=== PATIENT | male | born 1980 | race Caucasian/White ===

== ENCOUNTER 2024-12-20 08:24 | Emergency (ER) | payer OTHER, SELFPAY ==
[2024-12-20 08:26] VITALS: BP 134/93
--- NOTE | 2024-12-20 08:54 | EDRN ---
Gardenia Cabrera PA in room w/ pt at this time.
--- NOTE | 2024-12-20 09:02 | ED.GENMED ---
History of Present Illness
General
Chief Complaint: Trauma Significant Mechanism
Time Seen by Provider: 12/20/24 08:53
History of Present Illness
History of Present Illness:
44-year-old male presents to the emergency department for evaluation of mid to low back pain as well as bilateral forearm and hand weakness beginning after falling off a one-story roof 2 days ago. He states he fell from approximately 12 to 15 feet,
landing on his back and did strike his head. States he was unable to get up for approximately 1 hour. He denies any leg symptoms and has been able to walk without difficulty. Does not take blood thinners.
Past History
Past History
ED Past Medical History: Negative HTN, Hypercholesterolemia, IDDM or NIDDM
ED Past Surgical History: Orthopedic
Social History
Tobacco: Smoker
Review of Systems
Review of Systems
Allergies reviewed?: Yes
All Other Systems: ROS reviewed and negative except as documented in HPI and ROS
Phy Exam
Physical Exam
Physical Exam:
GEN: Well appearing, NAD, WDWN
Eyes: PERRLA, EOMs intact, no scleral icterus
HENT: NCAT, oral mucosa moist, No midline cervical spine tenderness
Lungs: CTAB, no wheezes, rales, rhonchi, normal chest wall excursion
Cardiac: RRR, no M/R/G, no peripheral edema. Radial pulses 2+ bilat
Abdomen: S, NT, ND, NABS, no masses or hepatosplenomegaly
Neuro: AO x 3 Cranial nerves II through XII grossly intact. Significant weakness noted to bilateral handgrip and wrist flexion, shoulder abduction and abduction 5 out of 5 and symmetric bilaterally, normal sensation to bilateral hands, Normal
strength of bilateral lower extremities
MSK: No gross deformity or ecchymosis. No midline thoracic spine tenderness, mild upper lumbar spine tenderness, midline incisional scar from kyphosis surgical correction
Skin: No rashes, petechiae. Normal color, no pallor or jaundice.
Psych: Calm, cooperative, proper hygiene
Course
Orders/Labs/Results
Orders:
Orders
12/20/24 09:01
CT Cervical Spine W/o Iv Contr Urgent
Comment:
Reason For Exam: trauma
CT Head W/o Iv Contrast Urgent
Comment:
Reason For Exam: trauma
CT Lumbar Spine W/o Iv Contras Urgent
Comment:
Reason For Exam: trauma
CT Thoracic Spine W/o Iv Contr Urgent
Comment:
Reason For Exam: trauma
12/20/24 09:20
IV Insert/Care/Rem.- Treatment PRN
12/20/24 09:52
Complete Blood Count/No Diff Urgent
Comprehensive Metabolic Panel Urgent
Abnormal Lab Results
12/20/24
09:52
WBC 13.9 H 10^3/uL
(4.8-10.8)
RDW 14.7 H %
(11.5-14.5)
Chloride 112 H mmol/L
(98-107)
Carbon Dioxide 20 L mmol/L
(22-30)
ALT 53 H U/L
(0-50)
12/20/24 09:52
12/20/24 09:52
Vital Signs
Initial and Last Documented VS:
Initial Vital Signs
Temp Pulse Resp BP Pulse Ox
98.2 F 102 18 134/93 97
12/20/24 08:26 12/20/24 08:26 12/20/24 08:26 12/20/24 08:26 12/20/24 08:26
Last Documented Vital Signs
Temp Pulse Resp BP Pulse Ox
98.2 F 72 16 121/80 96
12/20/24 08:26 12/20/24 11:50 12/20/24 11:50 12/20/24 11:50 12/20/24 11:50
MDM/Problems Addressed
MDM/Problems Addressed:
Patient found to have numerous injuries including C6 osteophyte fracture as well as L1-L2 vertebral body fractures. His symptoms are clinically compatible with a central cord syndrome, interestingly his head CT is also concerning for a subacute
hematoma versus mass thus will require further evaluation with MRI. Will be sent to [facility] as a trauma transfer for further evaluation and management
*Pulse Oximetry
SaO2: 97
Oxygen Mode of Delivery: Room air
Patient hypoxic: no
*Critical Care Note
Total Time (30-74mins, 75-104mins- exclusive of procedures): Not Applicable
ED Attending Note
-
Portions of this chart may have been created with voice recognition software.� Occasional wrong word or��sound alike� substitutions may have occurred due to the inherent limitations of voice recognition software.
Discharge Plan
Departure
Patient Disposition: Acute Care Hospital
Date of Disposition: 12/20/24
Time of Disposition: 11:13
Discharge Problem:
Central cord syndrome at C5 level of cervical spinal cord, Closed L1 vertebral fracture, Closed L2 vertebral fracture, Abnormal brain CT
Prescriptions:
No Action
hydrocodone-acetaminophen 1 TABLET tablet
1 tab PO Q4HPRN PRN (Reason: pain) Qty: 10 0RF
hydrocodone-acetaminophen 1 TABLET tablet
1 tab PO Q4HPRN PRN (Reason: severe pain) Qty: 10 0RF
ondansetron 4 MG tablet,disintegrating
4 mg PO TIDPRN PRN (Reason: nausea) Qty: 9 0RF
cefdinir 300 MG capsule
300 mg PO BID Qty: 19 0RF
lisinopril-hydrochlorothiazide 10-12.5 mg tablet
1 tab PO DAILY Qty: 30 1RF
Referrals:
Kehinde Eastman MD [Family Provider, Internal Medicine]
Hospital Transfer
Other hospital: [facility]
I certify that the patient requires transfer: Yes
Discussed case with accepting physician: Loretta
Reason for transfer: higher level of care
Interventions
Interventions:
*Risk Screen - Suicide Last Done: 12/20/24 09:41
*General Assessment Last Done: 12/20/24 09:41
*Neglect/Abuse Screening Last Done: 12/20/24 09:41
*ED- Fall Risk Assessment Last Done: 12/20/24 09:41
*ED COVID-19 Vaccine History Last Done: 12/20/24 09:41
*Nursing Disposition Last Done: 12/20/24 12:06
Discharge Date and Time
Discharge Date/Time: 12/20/24 12:09
Print Language: TAMAZIGHT
--- NOTE | 2024-12-20 09:15 | EDRN ---
Richardphia collar placed on pt at this time to immobilize his neck, true hard cervical collar not available in ER.
[2024-12-20 09:40] VITALS: BMI 22.9
[2024-12-20 10:07] LABS: Hematocrit 43.7 % (39.0-52.0); Hemoglobin 14.5 g/dL (13.0-18.0); Mean Corp Hgb Conc. 33.2 g/dL (33.0-37.0); Mean Corpuscular Volume 85.9 fL (80.0-94.0); Platelet Count 315 10^3/uL (130-400); Red Cell Dist. Width 14.7 % (11.5-14.5)
[2024-12-20 10:25] LABS: ALT (SGPT) 53 U/L (0-50); AST (SGOT) 44 U/L (17-59); Albumin 3.9 g/dl (3.5-5.0); Alkaline Phosphatase 86 U/L (38-126); Blood Urea Nitrogen 18 mg/dl (9-20); Calcium 9.2 mg/dl (8.4-10.2); Carbon Dioxide 20 mmol/L (22-30); Chloride 112 mmol/L (98-107); Estimated Creatinine Clearance > 125 ml/min; Glucose 94 mg/dl (70-99); Potassium 4.1 mmol/L (3.5-5.1); Sodium 141 mmol/L (135-145); Total Protein 7.1 g/dl (6.3-8.2); eGFR > 60.00
[2024-12-20 11:50] VITALS: BP 121/80
--- NOTE | 2024-12-20 12:10 | EDRN ---
Pt has loss of bilateral fine motor movement in both hands w/ severe pain in palmar surface when barely touched. 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
== END 2024-12-20 12:09 | disposition short-term general hospital (02) ==
LOC: EMR 08:24
PROVIDERS: Physician Assistant; EMERGENCY PHYSICIAN Student in an Organized Health Care Education/Training Program; FAMILY PHYSICIAN Internal Medicine
DX: S14.125A Central cord syndrome at C5 level of cervical spinal cord, initial encounter (principal); S12.000A Unspecified displaced fracture of first cervical vertebra, initial encounter for closed fracture; S12.100A Unspecified displaced fracture of second cervical vertebra, initial encounter for closed fracture; W17.89XA Other fall from one level to another, initial encounter; R93.0 Abnormal findings on diagnostic imaging of skull and head, not elsewhere classified; F17.200 Nicotine dependence, unspecified, uncomplicated
CPT/HCPCS: 99284; 70450; 72125; 72128; 72131; 80053; 85027

== ENCOUNTER 2025-01-14 07:11 | Outpatient (RCR) | payer OTHER, SELFPAY | END 2025-01-14 23:59 | disposition home or self-care (01) | LOC: ROT 07:11 | PROVIDERS: ATTENDING PHYSICIAN Internal Medicine | DX: Z47.89 Encounter for other orthopedic aftercare (principal); S12.501D Unspecified nondisplaced fracture of sixth cervical vertebra, subsequent encounter for fracture with routine healing; Z73.6 Limitation of activities due to disability; M62.81 Muscle weakness (generalized); M79.642 Pain in left hand; M79.641 Pain in right hand; W13.2XXD Fall from, out of or through roof, subsequent encounter | CPT/HCPCS: 97166; 97535 ==

== ENCOUNTER 2025-01-15 08:53 | Outpatient (RCR) | payer OTHER, SELFPAY | END 2025-01-15 23:59 | disposition home or self-care (01) | LOC: RPT 08:53 | PROVIDERS: ATTENDING PHYSICIAN Internal Medicine | DX: Z47.89 Encounter for other orthopedic aftercare (principal); S12.501D Unspecified nondisplaced fracture of sixth cervical vertebra, subsequent encounter for fracture with routine healing; S32.029D Unspecified fracture of second lumbar vertebra, subsequent encounter for fracture with routine healing; Z73.6 Limitation of activities due to disability; M79.642 Pain in left hand; M79.641 Pain in right hand; M62.81 Muscle weakness (generalized); W13.2XXD Fall from, out of or through roof, subsequent encounter | CPT/HCPCS: 97110; 97112; 97162 ==

== ENCOUNTER 2025-01-22 08:42 | Outpatient (RCR) | payer OTHER, SELFPAY | END 2025-02-11 13:18 | disposition home or self-care (01) | LOC: RPT 08:42 | PROVIDERS: ATTENDING PHYSICIAN Internal Medicine | DX: Z47.89 Encounter for other orthopedic aftercare (principal); S12.501D Unspecified nondisplaced fracture of sixth cervical vertebra, subsequent encounter for fracture with routine healing; Z73.6 Limitation of activities due to disability; R20.0 Anesthesia of skin; R20.2 Paresthesia of skin; W13.2XXD Fall from, out of or through roof, subsequent encounter | CPT/HCPCS: 97110; 97112; 97530 ==

== ENCOUNTER 2025-01-23 13:58 | Outpatient (RCR) | payer OTHER, SELFPAY | END 2025-02-11 13:27 | disposition home or self-care (01) | LOC: ROT 13:58 | PROVIDERS: ATTENDING PHYSICIAN Internal Medicine | DX: Z47.89 Encounter for other orthopedic aftercare (principal); S12.501D Unspecified nondisplaced fracture of sixth cervical vertebra, subsequent encounter for fracture with routine healing; Z73.6 Limitation of activities due to disability; M62.81 Muscle weakness (generalized); R20.0 Anesthesia of skin; W13.2XXD Fall from, out of or through roof, subsequent encounter | CPT/HCPCS: 97022; 97110 ==